=== PATIENT | female | born 1950 | race Caucasian/White ===

== ENCOUNTER 2024-10-15 12:01 | Day surgery (SDC) | payer MEDICARE, BC ==
[~2024-10-15] VITALS: Ht 162.6 cm; Wt 111.0 kg
[~2024-10-15 12:01] MED LIST: ACETYLCHOLINE OPHTH SOLN 1% 2ML (MIOCHOL-E) As Ordered ONE; DULA4.5P SQ; ECOT81TA5 PO; FLUC-1 PO; GLIM4TAB5 PO; IRON65TA2 PO; JARD1TAB3 PO; LEVO100T5 PO; LR 1,000 ML IV SCH; METF500T13 PO; METO1TAB87 PO; OMEG10002 PO; OSTETAB2 PO; ROSU20TA86 PO; VITA100093 PO; WARF4TAB51 PO
[2024-10-15] MEDS ORDERED: fentaNYL 100 MCG/2 ML INJECTION As Ordered ONE (12:07)
[2024-10-15] MEDS: CYCLOPENTOLATE 1% OPHTH SOLN 2ML BTL OS SCH (14:05)
[2024-10-15] MEDS: PHENYLEPHRINE 2.5% OPHTH SOL 2ML OS SCH (14:05)
[2024-10-15] MEDS: TETRACAINE 0.5% OPHTH SOLN 4ML OS SCH (14:05)
[2024-10-15] MEDS: FLURBIPROFEN 0.03% OPHTH SOLN 2.5 ML OS SCH (14:05)
[2024-10-15] MEDS: LIDOCAINE 1% SDV 5ML VIAL As Ordered ONE (15:51)
[2024-10-15] MEDS: CEFUROXIME 1MG/0.1ML INTRACAMERAL INJ As Ordered ONE (15:51)
[2024-10-15 16:10] VITALS: BP 144/65; TEMP 96.8; O2SAT 100
== END 2024-10-15 16:35 | disposition home or self-care (01) ==
LOC: M SDC 12:01
PROVIDERS: ATTEND Ophthalmology
DX: H25.12 Age-related nuclear cataract, left eye (principal); I10 Essential (primary) hypertension; E78.5 Hyperlipidemia, unspecified; E11.9 Type 2 diabetes mellitus without complications; E03.9 Hypothyroidism, unspecified; K58.8 Other irritable bowel syndrome; M79.7 Fibromyalgia; Z88.8 Allergy status to other drugs, medicaments and biological substances; G43.909 Migraine, unspecified, not intractable, without status migrainosus; Z79.01 Long term (current) use of anticoagulants; Z79.82 Long term (current) use of aspirin; Z79.84 Long term (current) use of oral hypoglycemic drugs; Z79.899 Other long term (current) drug therapy
CPT/HCPCS: 66984; J0697; J3010; V2632